=== PATIENT | male | born 1940 | race Caucasian/White ===

== ENCOUNTER → 2021-07-16 | Outpatient (CLI) | payer OTHER ==
[~2021-07-16] MED LIST: ADULT LOW DOSE81 MG PO; AZULFIDINE PO; CANASA1000 MG RE; CENTRUM SILVER1 EAC1 PO; CENTRUM SILVER1 EAC4 PO; DIPHENOXYLATE/A1 TA1 PO; FLAGYL500 MG PO; FLEXERIL PO; GABAPENTIN100 MG PO; IBUPROFEN 800800 M1 PO; LEVEMIR SUBQ; LIALDA1.2 GM PO; LOPERAMIDE 2 MG2 M1; LOTREL 5-20 MG1 EACH PO; NORCO 5-325 TA1 EACH PO; NOVOLOG100 UNIT/1 SUBQ; PERCOCET 5-3251 EACH PO; PREDNISONE 10 M10 MG PO; PREDNISONE PO; PROZAC 20 MG20 M1 PO; PROZAC 20 MG20 MG PO; TAMSULOSIN HCL0.4 M1 PO; TRILIPIX135 MG PO; WELCHOL 625 MG625 MG PO; XARELTO15 MG PO
[2021-07-16 08:35] LABS: INR 1.5; PROTIME 15.1 Seconds (9.20-11.50)
== END ==
LOC: M.LAB 05:16
PROVIDERS: ATTEND Anesthesiology
DX: E87.6 Hypokalemia (principal); R79.1 Abnormal coagulation profile